=== PATIENT | female | born 1970 | race African-American/Black ===

== ENCOUNTER 2023-04-16 07:57 | Emergency (ER) | payer OTHER ==
[2023-04-16 09:08] LABS: Hematocrit 41.1 % (34.9-44.5); Hemoglobin 14.2 g/dL (12.0-15.5); Mean Corpuscular HGB CONC 34.5 g/dL (32.0-36.0); Mean Corpuscular Hemoglobin 31.8 pg (27.0-33.0); Mean Corpuscular Volume 91.9 fl (81.6-98.3); Mean Platelet Volume 11.5 fl (7.4-10.4); Platelet Count 193 10x3/uL (150-450); RBC Distribution Width 13.7 % (11.5-14.5); Red Blood Cell (RBC) Count 4.47 10x6/uL (3.90-5.03)
[2023-04-16 09:25] LABS: Bilirubin Neg (Negative); Blood, Urine 10 (Negative); Glucose, Urine (Dipstick) Normal (Negative); Ketone, Urine Negative (Negative); Leukocyte Negative (Negative); Nitrite Negative (Negative); Protein, Urine (Dipstick) Negative (Neg-Trace); Specific Gravity, Urine 1.005 (1.005-1.030); Urobilinogen Normal mg/dL (Less than 2)
[2023-04-16 09:28] LABS: Eosinophils 2 % (0-10); Lymphocytes 40 % (21-51); Monocytes 13 % (0-10); Neutrophil 41 % (42-75); Reactive Lymphocytes 4 % (0-10)
[2023-04-16 09:29] LABS: Platelet Adequacy Comment Appears Adequate; RBC Morph Comment Within Normal Limits
[2023-04-16 09:30] LABS: Clarity Clear (Clear)
[2023-04-16 09:32] LABS: Bacteria/HPF None Seen HPF (None Seen); CAUTI Indications for Culture Pelvic or flank pain; RBC/HPF None Seen HPF (0-3); Squamous Epithelial 0-3 HPF (0-3); Urine Culture Reflex No No; WBC/HPF None Seen HPF (0-3)
[2023-04-16 09:34] LABS: Troponin I Less than 0.010 ng/mL (< 0.028)
[2023-04-16 09:43] LABS: SARS-CoV-2 NAA Rapid Test Not Detected (NotDetected)
[2023-04-16 10:40] LABS: ALT (SGPT) 43 U/L (8-55); AST (SGOT) 55 U/L (5-34); Albumin 4.6 g/dL (3.5-5.0); Alkaline Phosphatase 82 U/L (40-110); Anion Gap 17 mmol/L (10-20); BUN (Urea Nitrogen) 9 mg/dL (9.8-20.1); Bilirubin, Total 0.4 mg/dL (0.2-1.2); CRP (Inflammatory) Less than 0.50 mg/dL (= or < 0.5); Calc. Creatinine Clearance 0 mL/min (70-130); Calcium 10.2 mg/dL (7.8-10.44); Carbon Dioxide 22 mmol/L (22-29); Chloride 102 mmol/L (98-107); Estimated GFR 84; Globulin 3.6 g/dL (2.4-3.5); Glucose 88 mg/dL (70-105); Lipase 32 U/L (8-78); Potassium 3.8 mmol/L (3.5-5.1); Protein, Total 8.2 g/dL (6.0-8.3); Sodium 137 mmol/L (136-145)
== END 2023-04-16 10:50 | disposition home or self-care (01) ==
LOC: CSHERS 07:57
DX: N95.1 Menopausal and female climacteric states (principal); R11.2 Nausea with vomiting, unspecified; R19.7 Diarrhea, unspecified; L65.9 Nonscarring hair loss, unspecified; F17.210 Nicotine dependence, cigarettes, uncomplicated
CPT/HCPCS: 80053; 81001; 83605; 83690; 84443; 84484; 85025; 86140; 93005

== ENCOUNTER 2024-11-19 07:47 | Emergency (ER) | payer OTHER ==
[2024-11-19] MEDS ORDERED: Magnesium Sulfate/D5W 1 GM/100 ML BAG ONE (08:20)
[2024-11-19 08:33] LABS: #Basophils 0.06 10x3/uL (0.0-0.2); #Eosinophils 0.49 10x3/uL (0.0-0.5); #Monocytes 0.68 10x3/uL (0.0-1.1); #Neutrophils 2.57 10x3/uL (1.5-8.4); %Basophils 1.0 % (0.0-2.0); %Eosinophils 8.0 % (0.0-6.0); %Lymphocytes 37.6 % (18.0-47.0); %Monocytes 11.1 % (0.0-10.0); %Neutrophils 42.1 % (40.0-75.0); Hematocrit 40.1 % (34.9-44.5); Hemoglobin 13.7 g/dL (12.0-15.5); Mean Corpuscular Hemoglobin 30.9 pg (27.0-33.0); Mean Corpuscular Volume 90.3 fL (81.6-98.3); Platelet Count 218 10x3/uL (150-450); Red Blood Cell (RBC) Count 4.44 10x6/uL (3.90-5.03); White Blood Cell (WBC) Count 6.11 10x3/uL (3.5-10.5)
[2024-11-19] MEDS ORDERED: Albuterol 2.5 MG (3 mL) NEB ONE (08:43)
[2024-11-19 08:45] LABS: ALT (SGPT) 35 U/L (Less than 34); AST (SGOT) 43 U/L (11-34); Albumin 3.9 g/dL (3.1-4.5); Alkaline Phosphatase 96 U/L (40-110); Anion Gap 17 mmol/L (10-20); BUN (Urea Nitrogen) 16 mg/dL (9.8-20.1); Bilirubin, Total 0.2 mg/dL (0.3-1.2); Calc. Creatinine Clearance 0 mL/min (70-130); Calcium 9.3 mg/dL (7.8-10.44); Carbon Dioxide 18 mmol/L (22-29); Chloride 110 mmol/L (98-107); Globulin 3.7 g/dL (2.4-3.5); Glucose 86 mg/dL (70-105); Potassium 3.7 mmol/L (3.5-5.1); Sodium 141 mmol/L (136-145)
[2024-11-19 09:59] LABS: Actual Bicarbonate (HCO3v) 21.9 mEq/L (22-28); Analyzer IN Cardio CS ER; Base Excess -0.9 mEq/L (-2 - +2); Calcium, Ionized (venous) 1.08 mmol/L (1.16-1.32); Chloride (VBG) 108 mmol/L (98-106); Critical Notified By: Udy, RRT; Hematocrit-VBG 44 % (36.0-47.0); Hemoglobin (Hb) 15.0 g/dL (11.7-16.0); Potassium (VBG) 3.73 mmol/L (3.70-5.30); Puncture Site Other Site; RapidComm Collect By ERS.JW2; Sodium 141 mmol/L (133-146)
== END 2024-11-19 10:37 | disposition home or self-care (01) ==
LOC: CSHERS 07:47
DX: J45.901 Unspecified asthma with (acute) exacerbation (principal); F17.290 Nicotine dependence, other tobacco product, uncomplicated
CPT/HCPCS: 71045; 80053; 82805; 85025; 87426; 93005; 94640; 96374; 96375; J2919; J3475; J7611; J7620

== ENCOUNTER 2024-12-05 08:06 | Outpatient (CLI) | payer OTHER | END 2024-12-05 08:07 | disposition home or self-care (01) | LOC: CSHMAMMO 08:06 | PROVIDERS: ATTEND Nurse Practitioner Family | DX: N64.89 Other specified disorders of breast (principal) | CPT/HCPCS: G0279 ==